=== PATIENT | male | born 1980 | race Caucasian/White ===

== ENCOUNTER 2020-12-08 06:55 | Day surgery (SDC) | payer BC ==
[~2020-12-08 06:55] MED LIST: Lactated Ringers 1,000 ML IV SCH; Sodium Chloride 0.9% 10 ML Syringe FLUSH PRN
[2020-12-08] MEDS ORDERED: Lactated Ringers 1,000 ML IV SCH (07:00)
[2020-12-08] MEDS ORDERED: fentaNYL 100 MCG/2 ML SDV ONE (07:36)
[2020-12-08] MEDS ORDERED: Propofol 200 MG/20 ML SDV ONE (07:36)
--- NOTE | 2020-12-08 11:49 | OR ---
PREOPERATIVE DIAGNOSES: 1. History of gastric sleeve in 2016. 2. Daily gastroesophageal reflux disease, off proton pump inhibitor. 3. Current Prilosec therapy with decrease in symptoms to 1 to 2 times per week. POSTOPERATIVE DIAGNOSES: 1. History of gastric sleeve in 2016. 2. Daily gastroesophageal reflux disease, off proton pump inhibitor. 3. Current Prilosec therapy with decrease in symptoms to 1 to 2 times per week. PROCEDURE PERFORMED: Esophagogastroduodenoscopy with biopsies. ANESTHESIA: MAC anesthesia. COMPLICATIONS: None. BLOOD LOSS: Minimal. FINDINGS: 1. Unremarkable duodenum examined up to the third portion. 2. Mild antritis. 3. Expected gastric sleeve anatomy. 4. Small hiatal hernia. 5. Z-line measured at 37 cm. 6. Tongue of salmon-colored tissue emanated from the GE junction concerning for possible Rdz's. Biopsies obtained per [place] protocol. INDICATIONS FOR PROCEDURE: Mr. Moreno is a 40-year-old male who has history of gastric sleeve in 2016. He had no reflux prior to that and he initially did well. Over the last 4 to 5 months, he has described daily GERD symptoms unrelated to what he eats. Symptoms are worse at night. He has been put on Prilosec which has decreased his symptoms to about 1 or 2 times per week. He is here for an upper endoscopy. DETAILS OF PROCEDURE: Informed consent was obtained. The patient was brought to the operating room, placed in left lateral decubitus position. MAC anesthesia was used by Anesthesia colleagues. The endoscope was introduced in the patient's mouth, down the upper esophageal sphincter, into the stomach. The pylorus was intubated and the duodenum was examined up to the third portion. The endoscope was then withdrawn into the stomach. Multiple biopsies were taken of the antrum and to be sent for H. pylori. Retroflexed view was obtained. The endoscope was then slowly withdrawn. We noted some salmon-colored tissue extending up from the GE junction, concerning for possible Rdz's, and so multiple biopsies were obtained per the [place] protocol. No other pathology was identified except for what is mentioned in the findings section. The patient tolerated the procedure well, was awoken from anesthesia by Anesthesia colleagues without incident. PATHOLOGY: A) Stomach, antrum, biopsy: Mild chronic gastritis with rare lamina propria acute inflammation; no H. pylori organisms identified by H. pylori immunostain. B) Esophagus, distal, biopsy: Columnar type mucosa with intestinal metaplasia; correlate with endoscopic findings for Rdz's esophagus. No dysplasia. Squamous mucosa with features of reflux esophagitis. RECOMMENDATIONS: 1. Recommend referral to bariatric surgery. Patient may require conversion to a gastric bypass in order to control reflux. 2. Repeat EGD in 3 years for surveillance of Rdz's esophagus. 3. Discussed with PCP who has placed the bariatric surgery referral. RKM: 12/08/2020 08:07:39 MODL: 12/08/2020 11:10:19 /[id number]
== END 2020-12-08 08:50 | disposition home or self-care (01) ==
LOC: VM.SDS 06:55
PROVIDERS: ATTEND Student in an Organized Health Care Education/Training Program
DX: K29.50 Unspecified chronic gastritis without bleeding (principal); K29.00 Acute gastritis without bleeding; K31.89 Other diseases of stomach and duodenum; K44.9 Diaphragmatic hernia without obstruction or gangrene; K22.70 Barrett's esophagus without dysplasia; K21.00 Gastro-esophageal reflux disease with esophagitis, without bleeding; G47.33 Obstructive sleep apnea (adult) (pediatric); N52.9 Male erectile dysfunction, unspecified; E78.2 Mixed hyperlipidemia; E66.01 Morbid (severe) obesity due to excess calories; L40.9 Psoriasis, unspecified; Z79.899 Other long term (current) drug therapy; Z98.84 Bariatric surgery status; Z68.43 Body mass index [BMI] 50.0-59.9, adult
CPT/HCPCS: 00731; J2704; J3010; J7120